=== PATIENT | male | born 1960 | race Hispanic/Latino ===

== ENCOUNTER → 2017-11-20 | Outpatient (CLI) | payer SELFPAY | END | disposition home or self-care (01) | LOC: OIH 08:56 | PROVIDERS: ATTEND Internal Medicine Cardiovascular Disease | DX: Z13.6 Encounter for screening for cardiovascular disorders (principal) | CPT/HCPCS: 75571 ==

== ENCOUNTER → 2017-11-20 | Outpatient (CLI) | payer BC, OTHER | END | disposition home or self-care (01) | LOC: SHCH 08:55 | PROVIDERS: ATTEND Internal Medicine Cardiovascular Disease | DX: I73.9 Peripheral vascular disease, unspecified (principal) | CPT/HCPCS: 93925 ==

== ENCOUNTER 2024-12-23 10:04 | Observation (INO) | payer MEDICARE ==
[2024-12-22 15:01] VITALS: BP 155/78; PULSE 80; RESP 16; TEMP 98.2
[2024-12-22 15:13] LABS: BASOPHILS # (AUTO) 0.03 K/uL (0.00-0.20); BASOPHILS % (AUTO) 0.4 % (0.0-5.0); HEMATOCRIT 38.3 % (42-54); IMMATURE GRANULOCYTE ABSOLUTE 0.03 K/uL (0-1); LYMPHOCYTES # (AUTO) 0.5 K/uL (1.0-4.8); LYMPHOCYTES % (AUTO) 6.6 % (21.0-51.0); MEAN CORPUSCULAR HEMOGLOBIN 31.6 pg (27.0-33.0); MEAN CORPUSCULAR HGB CONC 32.6 g/dL (32.0-36.0); MONOCYTES # (AUTO) 0.1 K/uL (0.1-1.0); MONOCYTES % (AUTO) 1.9 % (3.0-13.0); NEUTROPHILS # (AUTO) 6.7 K/uL (1.8-7.7); NEUTROPHILS % (AUTO) 90.7 % (40.0-77.0); PLATELET COUNT (AUTO) 277 K/uL (130-400); RED BLOOD CELL COUNT(AUTO) 3.95 MIL/uL (4.50-6.20); RED CELL DISTRIBUTION WIDTH 12.8 % (11.0-15.5); WHITE BLOOD COUNT (AUTO) 7.4 K/uL (4.8-10.8)
[2024-12-22 15:22] LABS: INR <= 0.93 (0.85-1.15); PROTHROMBIN TIME 10.3 SEC (9.6-11.6)
[2024-12-22 15:31] LABS: ADD UA MICROSCOPIC NO; APPEARANCE,URINE CLEAR (CLEAR); BILIRUBIN,URINE NEGATIVE (NEGATIVE); COLOR,URINE COLORLESS (YELLOW); CREATININE 1.2 mg/dL (0.5-1.3); GLUCOSE, URINE (UA) NEGATIVE (NEGATIVE); KETONES,URINE NEGATIVE (NEGATIVE); LEUKOCYTE ESTERASE ,URINE NEGATIVE Leu/uL (NEGATIVE); NITRATE,URINE NEGATIVE (NEGATIVE); OCCULT BLOOD,URINE NEGATIVE (NEGATIVE); PH,URINE 6.5 (5.0-8.0); POTASSIUM 3.9 mmol/L (3.5-5.1); PROTEIN,URINE NEGATIVE (NEGATIVE); UROBILINOGEN,URINE 0.2 mg/dL (0.2-1.0)
[~2024-12-23] VITALS: Ht 175.3 cm; Wt 102.1 kg
[2024-12-23] VITALS (20 sets, daily range): BP systolic 117–140; BP diastolic 49–86; PULSE 75–93; RESP 12–20; TEMP 97.4–98.2; O2SAT 96
[~2024-12-23 10:04] MED LIST: CYCL-309 PO; FLUO40CA49 PO; GABA-534 PO; LISD70CA PO; LOSA100T59 PO; NAPR220T57 PO; OLAN5TAB76 PO; OMEP20CA12 PO; TAMS-1 PO; TRAM100T34 PO
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
[2024-12-23] MEDS: ceFAZolin SODIUM 2 GM VIAL ONE ×2 (11:03→21:54)
[2024-12-23] MEDS: LACTATED RINGERS 1000ML 1,000 ML IV ONE (11:04)
[2024-12-23] MEDS ORDERED: TRANEXAMIC ACID 1000MG/10ML ONE (13:21)
[2024-12-23] MEDS ORDERED: VANCOMYCIN 500MG+NS 100ML 100 ML IV ONE (13:22)
[2024-12-23] MEDS ORDERED: ceFAZolin SODIUM 1 GM VIAL ONE (13:22)
[2024-12-23] MEDS ORDERED: rocuRONium bROMide 10MG/1ML 5ML VL ONE (14:36)
[2024-12-23] MEDS ORDERED: proPOFol 10 MG/ML 20ML VIAL IV ONE (14:36)
[2024-12-23] MEDS ORDERED: ondanSETRON 4MG INJ ONE (14:36)
[2024-12-23] MEDS ORDERED: LIDOCAINE PF 100MG/5ML (2%) SYRINGE 5ML ONE (14:36)
[2024-12-23] MEDS ORDERED: dexaMETHasone SOD PHOSPHATE 10MG/ML 1ML VIAL ONE (14:36)
[2024-12-23] MEDS ORDERED: MIDAZOLAM HCL 1 MG/ML 2ML VIAL ONE (14:36)
[2024-12-23] MEDS ORDERED: FENTanyl CITRate PF 50 MCG/1 ML 5ML AMP IV ONE (14:37)
[2024-12-23] MEDS ORDERED: ROPivacaine 0.5% 5MG/ML 30ML ONE (14:37)
[2024-12-23] MEDS ORDERED: phenylEPHRINE HCL 10 MG/ML 1ML VIAL IV ONE (14:39)
[2024-12-23] MEDS: ceFAZolin SODIUM 2 GM VIAL IVPB ONE (16:30)
[2024-12-23] MEDS ORDERED: ePHEDrine SULFate 50 MG/ML AMPULE ONE (16:31)
--- NOTE | 2024-12-23 17:03 | NUR ---
PT eval not completed. Patient is in OR. PT to follow in am.
[2024-12-23] MEDS ORDERED: FERROUS FUMARATE 324 MG TABLET PO PRN (18:30)
[2024-12-23] MEDS ORDERED: PoTASSium chloRIDE 20MEQ ER 20 MEQ ERTAB PO PRN (18:30)
[2024-12-23] MEDS ORDERED: PoTASSium chloRIDE 20MEQ/100ML 100 ML IV PRN (18:30)
[2024-12-23] MEDS ORDERED: CALCIUM CARB 500MG PO PRN (18:30)
[2024-12-23] MEDS ORDERED: PoTASSium chl 10% ELIXIR 20MEQ 20 MEQ/15 ML UDCUP PO PRN (18:30)
[2024-12-23] MEDS ORDERED: DiphenhydrAMINE HCL 50 MG/ML VIAL IVP PRN (18:30)
[2024-12-23] MEDS ORDERED: TEMAZepam 15 MG CAPSULE PO PRN (18:30)
[2024-12-23] MEDS ORDERED: ondanSETRON 4MG INJ IVP PRN (18:30)
--- NOTE | 2024-12-23 18:31 | OP ---
Operative Note: DATE OF PROCEDURE: 12/23/24 SURGEON: ALVARO GARZA MD SUPERVISOR PASTE MIXING: [Bryanna Owens CFA] ANESTHESIA: [General anesthesia plus regional block] ANESTHESIOLOGIST/CARDIOLOGY CONSULTANTS: [Sergio Fuller CRNA] PREOPERATIVE DIAGNOSIS: [Right knee osteoarthritis] POSTOPERATIVE DIAGNOSIS: [Right knee osteoarthritis] IMPLANTS: [Biomet vanguard. Femur size 70 right PS. Tibia size 79 fixed cruciate. Tibial liner size 10 x 70 9/83 PS. Patella size 37 x 10, asymmetric] PROCEDURE: [Right total knee arthroplasty] ESTIMATED BLOOD LOSS: [100 mL] INDICATIONS: [Patient is a 64 years old male with history of osteoarthrosis of the right knee that has not responded to conservative treatment any longer. The patient is being admitted for a right total knee arthroplasty. Procedure understood, benefits and possible complications and agreed signed the consent form.] DESCRIPTION OF PROCEDURE: [After adequate general anesthesia was achieved and regional block obtained the right lower extremity was prepped and draped in the usual manner previous placement of the tourniquet in the proximal thigh. The extremity was then elevated and exsanguinated with an Esmarch bandage and the tourniquet inflated to 250 mmHg the Esmarch band been then removed. With the knee in flexion a longitudinal incision was then made in the anterior aspect through the skin followed by dissection of the subcutaneous tissue. A bone infusion needle was then inserted in the medial aspect of the tibial tuberosity area and through this needle we injected 60 mL solution containing 100 mg of vancomycin mixed with normal saline. After the needle was removed, a paramedian approach was then made with the Bovie cautery cutting through the quadriceps tendon, medial patellar retinaculum and patellar tendon retinaculum. The retropatellar tendon fat was then excised and the soft tissue elements of the tibia were elevated subperiosteally and retractors were applied medially and laterally . The anterior and posterior cruciate ligaments were resected. With the use of a drill a starting hole was made in the distal femur entering the intramedullary canal and then after removal of the drill an intramedullary guide was inserted with a 5 degree valgus block that touched the distal femur and to this the distal femoral cutting guide was then applied anteriorly and was secured to the distal femur with the use of pins. The intramedullary guide was then removed and with the use of the oscillating saw we proceeded to resect the distal femur removing the fragments and the guide. The femoral sizer was then applied distally and drill holes were made removing the sizer and the 4-in-1 cutting block was then inserted and the anterior, posterior and chamfer cuts were made removing the fragments and the block. The posterior cruciate ligament retractor was then inserted posterior to the tibia and this was brought forward proceeding then to apply the external tibial alignment guide and secured the proximal cutting guide to the tibia with the use of pins. With the use of the oscillating saw the proximal cut to the tibia tibia was made. The bone fragment was removed and the trial tibia plate was chosen. At this point the menisci were removed sharply and with the use of the curved osteotome the posterior osteophytes of the femur were removed. The PS cutting guide was then inserted and the intercondylar cut was made removing the fragment and the guide. The trial components were then inserted at the femur and tibia with a trial tibial liner bringing the knee into extension noticing that the patient had a very stable knee in flexion, extension and with valgus and varus stress. The knee was maintained in extension and the patella was then addressed proceeding to measure its thickness and then with the use of the oscillating saw we removed 10 mm from the articular surface and restored the height with application of a trial component after 3 peg holes were made. The patellofemoral ligament was removed and then the patellofemoral tracking was checked noticing to be normal. At this moment all the components were removed, the tibia after the metaphyseal defect was created and while cement was being mixed on the back table we proceeded to irrigate the joint with antibiotic solution and then cover the entry to the femoral canal with a bone plug. Once the cement was ready we proceeded to apply it first to the tibia surface inserting the final component and then to the femoral surface and inserted the final component removing the excess cement and then applying a trial liner bringing the knee into extension for compression. Then we proceeded to irrigate the patella surface and dried it applying then bone cement and the final patellar component was inserted and was secured with application of a clamp. The joint was irrigated with a warm diluted Betadine solution while the cement dried followed by irrigation with antibiotic solution. The trial liner was removed as well as the patellar clamp and we proceeded then to irrigate the posterior aspect of the joint to remove all the remaining debris and the final tibial liner was inserted and locked against the tibia . The tourniquet was deflated and hemostasis was obtained with the Bovie cautery. The range of motion was checked and noticed to be adequate with full extension and flexion, no laxity in valgus or varus stress and with adequate patellofemoral tracking. The patient had no anterior or posterior drawer. After further irrigation the wound was then closed with approximation of the quadriceps tendon, patellar retinaculum and patellar tendon retinaculum with #1 Vicryl close stitches alternating with #1 Ethibond stitches and closure of the subcutaneous tissue with 2-0 Monocryl inverted stitches and the skin was closed with 3-0 Monocryl subcuticularly. The wound was covered with a suction dressing followed by application of an Sid bandage for compression and the drapes were then removed transferring the patient to the hospital bed and taken to recovery room for follow-up by anesthesia. There were no complications during the procedure.] ALVARO GARZA MD Dec 23, 2024 18:31
[2024-12-23] MEDS: MEPERIDINE-PF 50 MG/ML SYG ONE (19:03)
--- NOTE | 2024-12-23 19:04 | NUR ---
received report from jovany christianson rn no concerns voiced
[2024-12-23] MEDS: HYDROcodone/APAP 5/325 1 TAB TABLET PO PRN (20:19)
[2024-12-23] MEDS: ketOROlac 15MG/ML VIAL (15MG/ML) IV PRN (21:55)
[2024-12-24] VITALS (11 sets, daily range): BP systolic 95–142; BP diastolic 50–92; PULSE 74–95; RESP 18–20; TEMP 97.6–98.9; O2SAT 97
[2024-12-24] MEDS: ceFAZolin SODIUM 1 GM VIAL IVP SCH (00:07)
[2024-12-24 05:43] LABS: HEMATOCRIT 33.8 % (42-54); MEAN CORPUSCULAR HEMOGLOBIN 31.4 pg (27.0-33.0); MEAN CORPUSCULAR HGB CONC 32.8 g/dL (32.0-36.0); MEAN CORPUSCULAR VOLUME 95.8 fL (79-99); RED BLOOD CELL COUNT(AUTO) 3.53 MIL/uL (4.50-6.20); RED CELL DISTRIBUTION WIDTH 12.9 % (11.0-15.5); WHITE BLOOD COUNT (AUTO) 10.2 K/uL (4.8-10.8)
[2024-12-24 05:55] LABS: CREATININE 1.1 mg/dL (0.5-1.3); POTASSIUM 4.1 mmol/L (3.5-5.1)
[2024-12-24] MEDS: CYCLOBENZAPRINE HCL 10 MG TABLET PO PRN (08:28)
[2024-12-24] MEDS: APIXaban 2.5 MG TABLET PO SCH (08:28)
[2024-12-24] MEDS: polyETHYLene GLYCol 3350 17 GM POWD.PACK PO SCH (08:29)
[2024-12-24] MEDS ORDERED: CYCLOBENZAPRINE HCL 10 MG TABLET PO PRN (09:00)
[2024-12-24] MEDS ORDERED: PANTOPrazole 40 MG TAB DR PO PRN (09:00)
[2024-12-24] MEDS: tamSULOsin HCL 0.4 MG CAP.ER.24H PO SCH (10:04)
[2024-12-24] MEDS: FLUoxetine HCL 20 MG CAPSULE PO SCH (10:05)
[2024-12-24] MEDS: GABApentin 100 MG CAPSULE PO SCH (10:05)
[2024-12-24] MEDS: oLANZapine 5 MG TAB PO SCH (10:05)
[2024-12-24] MEDS: LoSARTan 100 MG TABLET PO SCH (10:07)
--- NOTE | 2024-12-24 10:58 | PN ---
Late entry. Patient is seen at approximately 7:45 a.m. this morning. Ortho postop day one. This morning patient is awake alert and oriented. He is seated out of bed in a chair enjoying his breakfast. is at the bedside with him. Reports adequate pain control. Denies any shortness of breath and no acute distress. Vital signs stable. He has been afebrile. Laboratory results reviewed. Noted to have a drop in hemoglobin and hematocrit as expected after TKA. Patient is asymptomatic and we will address per protocol as necessary. Voiding on his own and already passing gas but yet to have BM. Encouraged incentive spirometry. Ice as present to op-site. The dressing is intact. Distal neurovascular exam. Gastrocnemius soft nontender. Negative Homans. He is alternating extending and flexing his knee while seated in a chair on a footstool. Instructed to do gentle range of motion of ankle and toes to promote circulation. Operative findings discussed with the patient. The patient voices that he would like to be considered for [facility] facility. We will address to case management. Pending physical therapy this morning. Assessment: Status post right total knee arthroplasty. Asymptomatic acute postoperative blood loss anemia. Plan: Continue with Dr. Currie TKA protocol and discharge planning. Asymptomatic acute postoperative blood loss anemia addressed with the protocol Vitals/Labs Vital Signs Date Time Temp Pulse Resp B/P (MAP) Pulse Ox O2 Delivery O2 Flow Rate FiO2 12/24/24 08:00 97 Room Air* 0 21 12/24/24 08:00 99.0 90 18 142/75 Laboratory Tests 12/24/24 05:17 Medications Current Medications Cefazolin Sodium 2 gm STK-MED ONCE .ROUTE; Start 12/23/24 at 09:49; Stop 12/23/24 at 09:49; Status DC Lactated Ringer's 1,000 ml @ As Directed STK-MED ONCE IV Last administered on 12/23/24at 11:04; Start 12/23/24 at 09:49; Stop 12/23/24 at 09:49; Status DC Tranexamic Acid 1,000 mg STK-MED ONCE .ROUTE; Start 12/23/24 at 13:21; Stop 12/23/24 at 13:22; Status DC Cefazolin Sodium 1 gm STK-MED ONCE .ROUTE; Start 12/23/24 at 13:22; Stop 12/23/24 at 13:22; Status DC Vancomycin HCl 100 ml @ As Directed STK-MED ONCE IV; Start 12/23/24 at 13:22; Stop 12/23/24 at 13:22; Status DC Lidocaine HCl 100 mg STK-MED ONCE .ROUTE; Start 12/23/24 at 14:36; Stop 12/23/24 at 14:36; Status DC Dexamethasone Sodium Phosphate 10 mg STK-MED ONCE .ROUTE; Start 12/23/24 at 14:36; Stop 12/23/24 at 14:36; Status DC Midazolam HCl 2 mg STK-MED ONCE .ROUTE; Start 12/23/24 at 14:36; Stop 12/23/24 at 14:37; Status DC Propofol 200 mg STK-MED ONCE IV; Start 12/23/24 at 14:36; Stop 12/23/24 at 14:37; Status DC Ondansetron HCl 4 mg STK-MED ONCE .ROUTE; Start 12/23/24 at 14:36; Stop 12/23/24 at 14:37; Status DC Rocuronium [place] 50 mg STK-MED ONCE .ROUTE; Start 12/23/24 at 14:36; Stop 12/23/24 at 14:37; Status DC Fentanyl Citrate 250 mcg STK-MED ONCE IV; Start 12/23/24 at 14:37; Stop 12/23/24 at 14:37; Status DC Ropivacaine 150 mg STK-MED ONCE .ROUTE; Start 12/23/24 at 14:37; Stop 12/23/24 at 14:37; Status DC Phenylephrine HCl 10 mg STK-MED ONCE IV; Start 12/23/24 at 14:39; Stop 12/23/24 at 14:39; Status DC Ephedrine Sulfate 50 mg STK-MED ONCE .ROUTE; Start 12/23/24 at 16:31; Stop 12/23/24 at 16:32; Status DC Cefazolin Sodium 2 gm STK-MED ONCE IVPB Last administered on 12/23/24at 16:30; Start 12/23/24 at 16:30; Stop 12/23/24 at 17:48; Status DC Tranexamic Acid 1,000 mg STK-MED ONCE IV Last administered on 12/23/24at 16:40; Start 12/23/24 at 16:40; Stop 12/23/24 at 17:48; Status DC Cefazolin Sodium 3 gm STK-MED ONCE IRRIG Last administered on 12/23/24at 17:41; Start 12/23/24 at 17:41; Stop 12/23/24 at 17:48; Status DC Vancomycin HCl 1 gm STK-MED ONCE IV Last administered on 12/23/24at 17:41; Start 12/23/24 at 17:41; Stop 12/23/24 at 17:48; Status DC Sodium Chloride 1,000 ml @ 100 mls/hr Q10H IV; Start 12/23/24 at 18:30; Stop 12/24/24 at 18:29 Polyethylene Glycol 17 gm DAILY PO Last administered on 12/24/24at 08:29; Start 12/24/24 at 09:00; Stop 01/23/25 at 08:59 Bisacodyl 10 mg DAILY PRN RC; Start 12/26/24 at 18:30; Stop 01/25/25 at 18:29 Ketorolac Tromethamine 15 mg Q6H PRN IV Last administered on 12/24/24at 05:17; Start 12/23/24 at 18:30; Stop 12/28/24 at 18:29 Ferrous Fumarate 324 mg DAILY PRN PO; Start 12/23/24 at 18:30; Stop 01/22/25 at 18:29 Temazepam 15 mg HS PRN PO; Start 12/23/24 at 18:30; Stop 01/22/25 at 18:29 Ondansetron HCl 4 mg Q6H PRN IVP; Start 12/23/24 at 18:30; Stop 01/22/25 at 18:29 Calcium Carbonate 500 mg Q12H PRN PO; Start 12/23/24 at 18:30; Stop 01/22/25 at 18:29 Diphenhydramine HCl 25 mg Q6H PRN IVP; Start 12/23/24 at 18:30; Stop 01/22/25 at 18:29 Cefazolin Sodium 2 gm Q8H IVP Last administered on 12/24/24at 06:50; Start 12/23/24 at 23:30; Stop 12/24/24 at 07:31; Status DC Cyclobenzaprine HCl 5 mg Q8H PRN PO Last administered on 12/24/24at 08:28; Start 12/23/24 at 18:30; Stop 12/24/24 at 08:40; Status DC Potassium Chloride 100 ml @ 100 mls/hr AD PRN IV; Start 12/23/24 at 18:30; Stop 01/22/25 at 18:29 Potassium Chloride 20 meq AD PRN PO; Start 12/23/24 at 18:30; Stop 01/22/25 at 18:29 Potassium Chloride 20 meq AD PRN PO; Start 12/23/24 at 18:30; Stop 01/22/25 at 18:29 Acetaminophen/ Hydrocodone Bitart Q4H PRN PO Last administered on 12/24/24at 08:30; Start 12/23/24 at 18:30; Stop 12/28/24 at 18:29 Apixaban 2.5 mg BID PO Last administered on 12/24/24at 08:28; Start 12/24/24 at 09:00; Stop 01/23/25 at 08:59 Meperidine HCl 50 mg STK-MED ONCE .ROUTE Last administered on 12/23/24at 19:03; Start 12/23/24 at 18:54; Stop 12/23/24 at 18:57; Status DC Cefazolin Sodium 2 gm STK-MED ONCE .ROUTE; Start 12/23/24 at 21:09; Stop 12/23/24 at 21:09; Status DC Cyclobenzaprine HCl 10 mg HS PRN PO; Start 12/24/24 at 09:00; Stop 01/23/25 at 08:59 Losartan Potassium 100 mg DAILY PO Last administered on 12/24/24at 10:07; Start 12/24/24 at 09:00; Stop 01/23/25 at 08:59 Olanzapine 5 mg DAILY PO Last administered on 12/24/24at 10:05; Start 12/24/24 at 09:00; Stop 01/23/25 at 08:59 Tamsulosin HCl 0.4 mg DAILY PO Last administered on 12/24/24at 10:04; Start 12/24/24 at 09:00; Stop 01/23/25 at 08:59 Fluoxetine HCl 40 mg DAILY PO Last administered on 12/24/24at 10:05; Start 12/24/24 at 09:00; Stop 01/23/25 at 08:59 Gabapentin 400 mg DAILY PO Last administered on 12/24/24at 10:05; Start 12/24/24 at 09:00; Stop 01/23/25 at 08:59 Home Med Lisdexamfetamine Dimesylate (Vyvanse) 70 MG DAILY PO; Start 12/24/24 at 09:00; Stop 01/23/25 at 08:59 Pantoprazole Sodium 40 mg DAILY PRN PO; Start 12/24/24 at 09:00; Stop 01/23/25 at 08:59 ODELL MICHEL FIXER SUPERVISOR Dec 24, 2024 10:58
--- NOTE | 2024-12-24 12:30 | NUR ---
ORTHO COORDINATOR: TEACHING REGARDING DVT AND PNEUMONIA PREVENTION, PAIN EXPECTATIONS AND PAIN MANAGEMENT. PATIENT UP TO CHAIR, AT BEDSIDE. [employer] DRESSING INTACT AND FUNCTIONING. B SCD SLEEVES IN ROOM. SCD MACHINE IN ROOM. INCENTIVE SPIROMETER AT BEDSIDE, PATIENT REPORTS USING EVERY HOUR. REDIRECTED, EVERY HOUR 10 TIMES OR AT COMMERCIALS WHILE WATCHING TV. PATIENT AND VERBALIZED UNDERSTANDING. REVIEWED PAIN EXPECTATIONS AND PAIN MANAGEMENT TO INCLUDE NUMERIC PAIN SCALE AND NEED TO REQUEST PAIN MEDICATION. ENCOURAGED PATIENT TO SHOWER TODAY, INSTRUCTIONS ON [employer] DRESS[employer] CARE PROVIDED. PATIENT AND VERBALIZED UNDERSTANDING. NO ADDITIONAL QUESTIONS/CONCERNS AT THIS TIME.
--- NOTE | 2024-12-24 16:37 | NUR ---
DC PLAN VISITED WITH PATIENT. PATIENT LIVES WITH SPOUSE. INDEPENDENT ABLE TO PERFORM ADL'S. PATIENT HAS NO SERVICES OR DME'S. PHYSICAL ADDRESS IS [address] [place] [address]. ASKED ABOUT SNF SINCE HE IS JUST VISITING HERE. [facility] SIGNED FOR [facility]. PACKET MADE AND SENT. Addendum: 12/24/24 at 1642 by KATERINE MOSES RN CM Amended: Links added.
[2024-12-25] MEDS: 0.9%NACL 1000ML 1,000 ML IV SCH (03:08)
[2024-12-25 04:03] VITALS: BP 128/67; PULSE 92; RESP 20; TEMP 98
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
[2024-12-25 08:00] VITALS: BP 129/75; PULSE 82; RESP 18; TEMP 98.7; O2SAT 96
[2024-12-25] MEDS: GABApentin 100 MG CAPSULE PO SCH (08:45)
[2024-12-25] MEDS: GABAPENTIN 300 MG CAPSULE PO SCH (08:49)
--- NOTE | 2024-12-25 09:58 | PN ---
POD #1 S/P R TKA VS stable, afebrile Moderate pain. Did well with PT Awake, alert, oriented x 3 Dressing intact, NV intact A: s/p right TKA P: [facility] Continue physical therapy, pain management. Vitals/Labs Vital Signs Date Time Temp Pulse Resp B/P (MAP) Pulse Ox O2 Delivery O2 Flow Rate FiO2 12/25/24 08:00 98.8 82 18 129/75 Room Air 12/25/24 04:03 98 12/24/24 20:10 0 21 Medications Current Medications Cefazolin Sodium 2 gm STK-MED ONCE .ROUTE; Start 12/23/24 at 09:49; Stop 12/23/24 at 09:49; Status DC Lactated Ringer's 1,000 ml @ As Directed STK-MED ONCE IV Last administered on 12/23/24at 11:04; Start 12/23/24 at 09:49; Stop 12/23/24 at 09:49; Status DC Tranexamic Acid 1,000 mg STK-MED ONCE .ROUTE; Start 12/23/24 at 13:21; Stop 12/23/24 at 13:22; Status DC Cefazolin Sodium 1 gm STK-MED ONCE .ROUTE; Start 12/23/24 at 13:22; Stop 12/23/24 at 13:22; Status DC Vancomycin HCl 100 ml @ As Directed STK-MED ONCE IV; Start 12/23/24 at 13:22; Stop 12/23/24 at 13:22; Status DC Lidocaine HCl 100 mg STK-MED ONCE .ROUTE; Start 12/23/24 at 14:36; Stop 12/23/24 at 14:36; Status DC Dexamethasone Sodium Phosphate 10 mg STK-MED ONCE .ROUTE; Start 12/23/24 at 14:36; Stop 12/23/24 at 14:36; Status DC Midazolam HCl 2 mg STK-MED ONCE .ROUTE; Start 12/23/24 at 14:36; Stop 12/23/24 at 14:37; Status DC Propofol 200 mg STK-MED ONCE IV; Start 12/23/24 at 14:36; Stop 12/23/24 at 14:37; Status DC Ondansetron HCl 4 mg STK-MED ONCE .ROUTE; Start 12/23/24 at 14:36; Stop 12/23/24 at 14:37; Status DC Rocuronium [place] 50 mg STK-MED ONCE .ROUTE; Start 12/23/24 at 14:36; Stop 12/23/24 at 14:37; Status DC Fentanyl Citrate 250 mcg STK-MED ONCE IV; Start 12/23/24 at 14:37; Stop 12/23/24 at 14:37; Status DC Ropivacaine 150 mg STK-MED ONCE .ROUTE; Start 12/23/24 at 14:37; Stop 12/23/24 at 14:37; Status DC Phenylephrine HCl 10 mg STK-MED ONCE IV; Start 12/23/24 at 14:39; Stop 12/23/24 at 14:39; Status DC Ephedrine Sulfate 50 mg STK-MED ONCE .ROUTE; Start 12/23/24 at 16:31; Stop 12/23/24 at 16:32; Status DC Cefazolin Sodium 2 gm STK-MED ONCE IVPB Last administered on 12/23/24at 16:30; Start 12/23/24 at 16:30; Stop 12/23/24 at 17:48; Status DC Tranexamic Acid 1,000 mg STK-MED ONCE IV Last administered on 12/23/24at 16:40; Start 12/23/24 at 16:40; Stop 12/23/24 at 17:48; Status DC Cefazolin Sodium 3 gm STK-MED ONCE IRRIG Last administered on 12/23/24at 17:41; Start 12/23/24 at 17:41; Stop 12/23/24 at 17:48; Status DC Vancomycin HCl 1 gm STK-MED ONCE IV Last administered on 12/23/24at 17:41; Start 12/23/24 at 17:41; Stop 12/23/24 at 17:48; Status DC Sodium Chloride 1,000 ml @ 100 mls/hr Q10H IV Last administered on 12/25/24at 03:08; Start 12/23/24 at 18:30; Stop 12/24/24 at 18:29; Status DC Polyethylene Glycol 17 gm DAILY PO Last administered on 12/25/24at 08:49; Start 12/24/24 at 09:00; Stop 01/23/25 at 08:59 Bisacodyl 10 mg DAILY PRN RC; Start 12/26/24 at 18:30; Stop 01/25/25 at 18:29 Ketorolac Tromethamine 15 mg Q6H PRN IV Last administered on 12/25/24at 04:16; Start 12/23/24 at 18:30; Stop 12/28/24 at 18:29 Ferrous Fumarate 324 mg DAILY PRN PO; Start 12/23/24 at 18:30; Stop 01/22/25 at 18:29 Temazepam 15 mg HS PRN PO; Start 12/23/24 at 18:30; Stop 01/22/25 at 18:29 Ondansetron HCl 4 mg Q6H PRN IVP; Start 12/23/24 at 18:30; Stop 01/22/25 at 18:29 Calcium Carbonate 500 mg Q12H PRN PO; Start 12/23/24 at 18:30; Stop 01/22/25 at 18:29 Diphenhydramine HCl 25 mg Q6H PRN IVP; Start 12/23/24 at 18:30; Stop 01/22/25 at 18:29 Cefazolin Sodium 2 gm Q8H IVP Last administered on 12/24/24at 06:50; Start 12/23/24 at 23:30; Stop 12/24/24 at 07:31; Status DC Cyclobenzaprine HCl 5 mg Q8H PRN PO Last administered on 12/24/24at 08:28; Start 12/23/24 at 18:30; Stop 12/24/24 at 08:40; Status DC Potassium Chloride 100 ml @ 100 mls/hr AD PRN IV; Start 12/23/24 at 18:30; Stop 01/22/25 at 18:29 Potassium Chloride 20 meq AD PRN PO; Start 12/23/24 at 18:30; Stop 01/22/25 at 18:29 Potassium Chloride 20 meq AD PRN PO; Start 12/23/24 at 18:30; Stop 01/22/25 at 18:29 Acetaminophen/ Hydrocodone Bitart Q4H PRN PO Last administered on 12/25/24at 06:42; Start 12/23/24 at 18:30; Stop 12/28/24 at 18:29 Apixaban 2.5 mg BID PO Last administered on 12/25/24at 08:48; Start 12/24/24 at 09:00; Stop 01/23/25 at 08:59 Meperidine HCl 50 mg STK-MED ONCE .ROUTE Last administered on 12/23/24at 19:03; Start 12/23/24 at 18:54; Stop 12/23/24 at 18:57; Status DC Cefazolin Sodium 2 gm STK-MED ONCE .ROUTE; Start 12/23/24 at 21:09; Stop 12/23/24 at 21:09; Status DC Cyclobenzaprine HCl 10 mg HS PRN PO; Start 12/24/24 at 09:00; Stop 01/23/25 at 08:59 Losartan Potassium 100 mg DAILY PO Last administered on 12/25/24at 08:46; Start 12/24/24 at 09:00; Stop 01/23/25 at 08:59 Olanzapine 5 mg DAILY PO Last administered on 12/25/24at 08:47; Start 12/24/24 at 09:00; Stop 01/23/25 at 08:59 Tamsulosin HCl 0.4 mg DAILY PO Last administered on 12/25/24at 08:44; Start 12/24/24 at 09:00; Stop 01/23/25 at 08:59 Fluoxetine HCl 40 mg DAILY PO Last administered on 12/25/24at 08:47; Start 12/24/24 at 09:00; Stop 01/23/25 at 08:59 Gabapentin 400 mg DAILY PO Last administered on 12/24/24at 10:05; Start 12/24/24 at 09:00; Stop 12/24/24 at 11:51; Status DC Home Med Lisdexamfetamine Dimesylate (Vyvanse) 70 MG DAILY PO Last administered on 12/25/24at 08:51; Start 12/24/24 at 09:00; Stop 01/23/25 at 08:59 Pantoprazole Sodium 40 mg DAILY PRN PO; Start 12/24/24 at 09:00; Stop 01/23/25 at 08:59 Gabapentin 100 mg DAILY PO Last administered on 12/25/24at 08:45; Start 12/25/24 at 09:00; Stop 01/23/25 at 08:59 Gabapentin 300 mg DAILY PO Last administered on 12/25/24at 08:49; Start 12/25/24 at 09:00; Stop 01/24/25 at 08:59 ALVARO GARZA MD Dec 25, 2024 09:58
--- NOTE | 2024-12-25 10:11 | DS ---
DISCHARGE SUMMARY [ [Date of admission: 12/23/2024 Date of discharge: 12/25/2024 Final diagnosis: Right Knee osteoarthritis Surgical procedures: Right total Knee arthroplasty on 12/23/2024 Summary of History and Physical: The patient is a year-old with history of severe arthrosis to the knee that has been present for several years and has been treated conservatively with no longer adequate response to treatment. The patient is being admitted for total knee arthroplasty. Previous medical history: Hypertension, hyperlipidemia, TIA, obesity, arthritis. Previous surgical history: Placement of a bone stimulator lower back. Back surgery x2 Family history: Hypertension while at you doing Social history: Negative for use of tobacco or alcohol. Allergies: NKDA. Review of system: Negative on admission Hospital course: The patient was admitted and taken to the operating room for a total knee arthroplasty, procedure that went uneventful. Postoperatively the patient remained hemodynamically stable and afebrile. The patient received antibiotic and anticoagulation prophylaxis as per protocol. The patient was evaluated by physical therapy and started rehabilitation treatment with ambulation with the use of walker, weightbearing as tolerated, range of motion exercises and bed transfers. The patient was also evaluated by case management and arrangements were made for discharge. The patient tolerated diet well. On postop day #2 all the arrangements were completed and the patient was dismissed. Condition on discharge: Good Disposition: The patient will be dismissed to a long-term facility . Follow- up will be done at the office in 3 weeks. The patient is to continue with physical therapy and rehabilitation at long-term and be ambulatory with the use of a walker, weightbearing as tolerated. Continue taking pain medication as instructed as well as anticoagulation prophylaxis. Continue with home medications also as instructed and continue with pre admission diet.] ALVARO GARZA MD ] ALVARO GARZA MD Dec 25, 2024 10:11
[2024-12-25 12:00] VITALS: BP 147/80; PULSE 92; RESP 18; TEMP 98.1
--- NOTE | 2024-12-25 14:17 | NUR ---
[facility] Approved Received notification that they have obtained ins auth for [facility]. Bed avail today if pt ready for dc. Primary nurse notified.
[2024-12-25] MEDS ORDERED: HYDR-4060 PO (16:00)
[2024-12-25] MEDS ORDERED: APIX2.5T PO (16:00)
--- NOTE | 2024-12-25 17:05 | NUR ---
PATIENT D/C TO [facility]. NO S/S OF DISTRESS NOTED. IV ACCESS REMOVED. REPORT CALLED TO SHYANNE AT [facility].
[2024-12-26] MEDS ORDERED: BisaCODYL 10 MG SUPP.RECT RC PRN (18:30)
== END 2024-12-25 17:45 ==
LOC: DAH 10:04 → DAHIP 10:05 → DAH 10:05 → 4DH 19:43
PROVIDERS: ADMIT Orthopaedic Surgery; ATTEND Orthopaedic Surgery
DX: M17.11 Unilateral primary osteoarthritis, right knee (principal); I10 Essential (primary) hypertension; E78.5 Hyperlipidemia, unspecified; E66.9 Obesity, unspecified; Z86.73 Personal history of transient ischemic attack (TIA), and cerebral infarction without residual deficits; Z79.899 Other long term (current) drug therapy; Z98.890 Other specified postprocedural states
CPT/HCPCS: 80048 ×2; 85025; 85610; 87086; 81003; 36415 ×2; 87641; 27447; 96375; 88311; 88305; 96376 ×2; 96365; 96366; 85027; 82948 ×5; 97161; 97116 ×4; 97530 ×9; 92610; G0378 ×42; A4663; J7120 ×2; J3370 ×2; J3010; J0690 ×7; J3490 ×4; J1100; J2003; J2250; J2704; J2405; J2175; J2795; J1885 ×6; J2371; A9272; A4649 ×3; A4930 ×2; C1713; C1776; A5120; A4215; A4223 ×2; A4213; A4222; A4221; A4216